=== PATIENT | female | born 1975 | race Two or more races ===

== ENCOUNTER → 2019-12-04 | Day surgery (SDC) | payer OTHER ==
[~2019-12-04] VITALS: Ht 160 cm; Wt 78.0 kg
[2019-12-04] VITALS (11 sets, daily range): BP systolic 110–147; BP diastolic 70–82
[~2019-12-04] MED LIST: Atropine Inj 1mg/10ml Syr IVP PRN; DiphenhydrAMINE 50mg/ml Inj IVP PRN; LR 1000ml 1,000 ML IVLG SCH; LR 1000ml ONE; Labetalol 5mg/ml 20ml vial IV PRN; Lidocaine 1% MPF 10mg/ml 5ml ONE; MYLANTA MAXIMU355 ML PO; Midazolam 2mg/2ml Inj IVP PRN; OMEPRAZOLE40 M1 ORAL; TRAMADOL HCL50 MG ORAL; VENTOLIN HFA18 GM INH; fentaNYL 100 mcg/2 mL IV PRN
--- NOTE | 2019-12-04 06:53 | Anethesia Preoperative Eval ---
Anesthesia Pre-op PMH/ROS General Date of Evaluation: Dec 04, 2019 Time of Evaluation: 06:51 Anesthesiologist: jackson ASA Score: ASA 3 Mallampati Score Class I : Soft palate, uvula, fauces, pillars visible Class II: Soft palate, uvula, fauces visible Class III: Soft palate, base of uvula visible Class IV: Only hard plate visible Mallampati Classification: Class II Surgeon: dallin Diagnosis: gerd, abdominal pain Surgical Procedure: egd Anesthesia History: none Family History: no anesthesia problems Allergies: Coded Allergies: No Known Allergies (Unverified , 11/30/19) Medications: see eMAR Patient NPO?: Yes Past Medical History Pulmonary: Reports: asthma Gastrointestinal/Genitourinary: Reports: GERD, other - lmp 11/03/2019 Neurologic/Psychiatric: Reports: depression/anxiety Musculoskeletal/Integumentary: Reports: other - back pain, left shoulder pain Other: obesity PSxH Narrative: cholecystectomy, shoulder sx, , btl Anesthesia Pre-op Phys. Exam Physician Exam Last Vital Signs Date Time Temp Pulse Resp B/P (MAP) Pulse Ox O2 Delivery O2 Flow Rate FiO2 12/04/19 07:37 Room Air 12/04/19 07:30 97.0 70 18 121/73 100 Constitutional: NAD Neurologic: CN 2-12 intact Cardiovascular: RRR Respiratory: CTA Gastrointestinal: S/NT/ND Airway Exam Mallampati Score: Class II MO: limited Neck: flexible TMD: 2fb ROM: limited Teeth: intact Anesthesia Pre-op A/P Labs Labs Test 12/04/19 07:15 Urine HCG, Qualitative Negative (NEGATIVE) Microbiology Date/Time Source Procedure Growth Status 11/30/19 10:20 Nasopharynx SARS-CoV-2 RdRp Gene Assay - Final Complete Risk Assessment & Plan Assessment: asa3 Plan: mac Status Change Before Surgery: No Pre-Antibiotics Drug: Jeanette Mcqueen MD Dec 04, 2019 06:53
--- NOTE | 2019-12-04 07:11 | Short Stay Surgery H&P ---
History of Present Illness History of Present Illness Chief Complaint Abdominal pains/GERDS HPI Rachel Burnham is a 44 year old female who was admitted on for Gerd,Abdominal Pain Patient History Allergies: Coded Allergies: No Known Allergies (Unverified , 11/30/19) PAST MEDICAL HISTORY: (1) Asthma (2) Anemia (3) History of (4) History of cholecystectomy (5) History of shoulder surgery (6) History of tubal ligation Medication History Scheduled Albuterol Sulfate (Ventolin Hfa), 1 PUFF INH PRN, (Reported) Mag Hydrox/Aluminum Hyd/Simeth (Mylanta Maximum Strength Liq), 355 ML PO PRN, (Reported) Omeprazole (Omeprazole), 40 MG ORAL DAILY, (Reported) Scheduled PRN Tramadol Hcl* (Ultram*), 50 MG ORAL Q6H PRN for For Pain, (Reported) Review of Systems Cardiovascular: Reports: no symptoms Respiratory: Reports: asthma Skeletal: Reports: trauma Gastrointestinal: Reports: gastro esophageal reflux disease Genitourinary: Reports: no symptoms Neurologic: Reports: no symptoms Endocrine: Reports: no symptoms Hematologic: Reports: anemia Physical Exam Skin: normal HENT: normal Heart: normal Lungs: normal Abdomen: abnormal Extremities: normal Genitourinary: normal Plan Plan of Care Upper GI. endoscopy and biopsy Preop Interventions Nonne. Summary of Findings See the reports. Attestation Are the patient's medical conditions optimized for surgery? Attestation Response: yes Jason Gonsales MD Dec 04, 2019 07:11
--- NOTE | 2019-12-04 07:12 | Pre-Procedure Note/Attestation ---
Pre-Procedure Note/Attestation Complete Prior to Procedure Planned Procedure: left Procedure Narrative: Examination of the upper GI. tract via endoscopy and obtaining biopsy. Indications for Procedure Pre-Operative Diagnosis: R/O Gastritis/Peptic Ulcer/esophagitis Attestation I attest that I discussed the nature of the procedure; its benefits; risks and complications; and alternatives (and the risks and benefits of such alternatives), prior to the procedure, with the patient (or the patient's legal access representative). I attest that, if there was a reasonable possibility of needing a blood transfusion, the patient (or the patient's legal access representative) was given the [facility] standardized written summary, pursuant to the Zeb Darlene Blood Safety Act ([place] Health and Safety Code # 1645, as amended). I attest that I re-evaluated the patient just prior to the surgery and that there has been no change in the patient's H&P, except as documented below: Jason Gonsales MD Dec 04, 2019 07:12
--- NOTE | 2019-12-04 07:45 | Discharge Instructions ---
Discharge Instructions Discharge Instructions Follow up with: Make appointment to see the doctor in 2 weeks For Congestive Heart Failure Reminder Report to your physician any weight gain of 5 pounds or more in one week. Jason Gonsales MD Dec 04, 2019 07:45
--- NOTE | 2019-12-04 08:04 | Endoscopy Procedure Note ---
Endoscopy Procedure Note General Indication for Procedure: Abdominal pains/GERDs Procedures Performed: EGD - Minimal amount of bile in the stomach noted with mild generalized gastritis. Biopsy was taken, per random, from the gastric body. Specimen: yes Pt Tolerated Procedure Well: Yes Estimated Blood Loss: none Anesthesia Anesthesiologist: Dr. Ramirez Anesthesia: moderate sedation Medications Medication Given: see anesthesia record Inserted Devices Implant(s) used?: No Quality Quality of Bowel Preparation: Excellent Was there any complications?: No GI Core Measures 50 yrs or older w/o bx or poly: Not Applicable 10yrs. F/U recommended: Not Applicable If not recommended, why?: Med reason:<3 yrs.: System Reason:<3 yrs.: Jason Gonsales MD Dec 04, 2019 08:04
--- NOTE | 2019-12-04 08:28 | Immediate Post-Op Evaluation ---
Immediate Post-Op Evalulation Immediate Post-Op Evalulation Procedure: egd w/bx Date of Evaluation: Dec 04, 2019 Time of Evaluation: 08:26 IV Fluids: 150ml lr Blood Products: none Estimated Blood Loss: negligible Blood Pressure Systolic: 118 Blood Pressure Diastolic: 74 Pulse Rate: 63 Respiratory Rate: 18 O2 Sat by Pulse Oximetry: 100 Temperature (Fahrenheit): 97.2 Pain Score (1-10): 0 Nausea: No Vomiting: No Complications none Patient Status: awake, reacts, patent Hydration Status: adequate Drug: Jeanette Mcqueen MD Dec 04, 2019 08:27
--- NOTE | 2019-12-04 09:15 | Pre-op HX & Phy Repo 2 SIG ---
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 At that time, she reported that she did have a lot of abdominal pain mostly located over the upper epigastric area along with symptoms of gastroesophageal acid reflux for which she has been receiving omeprazole and anti-acids. Recently again, I have seen the patient in the office on a regular basis that she is reporting to me that she still continues to have epigastric pain along with symptoms of heartburn consistent with gastroesophageal acid reflux, GERD. She denies, however, having any difficulty swallowing. There has been no history of hematemesis, melena, hematochezia, etc. She denies having any diarrhea or major constipation. As I mentioned, she has been taking nonsteroidal anti-inflammatory agents at least for two years and she had stopped it currently, but she is taking strong analgesics. She reported that she never had any peptic ulcer disease or any gastrointestinal conditions before being injured at job site. She denies having had any history of diagnosis for Helicobacter pylori infection in the past either. She has never undergone any upper GI endoscopic examination. It is also important to mention that she reports that she has had history of anxiety and depression subsequent to her work injury as well. PAST MEDICAL HISTORY: The patient has had history of asthma for which she is taking albuterol. Otherwise, she denies having any history of hypertension, high cholesterol, etc. There is no history of arthritis. There is, however, a question of anemia in the past the nature of which is not clear. PAST SURGICAL HISTORY: She has had three C-sections along with history of right shoulder surgery with cholecystectomy. She has also had a tubal ligation. ALLERGIES: Nonsignificant as mentioned. FAMILY HISTORY: Nonsignificant. HABITS: She does not smoke or drink. MEDICATIONS: Present medications, she is reporting that currently she is taking Mylanta, albuterol inhaler, medications consistent with a combination of magnesium and aluminum. Also, she is taking omeprazole 40 mg every morning and tramadol 50 mg as needed for severe pains. REVIEW OF SYSTEMS: HEENT: She complains of some headaches and occasional dizziness. RESPIRATORY: She has had history of asthma for which she is currently taking proper medications including inhalers. CARDIOVASCULAR: Nonsignificant. HEMATOLOGIC: She has had history of anemia, but the nature of which is not clear. It could have been related to the vaginal or uterine bleeding consistent with metrorrhagia. MUSCULOSKELETAL: She complains of significant pain over different parts of the body including shoulders and the knees and the wrist. GENITOURINARY: Nonsignificant. GYNECOLOGIC: She has reported that she has had history of uterine bleeding. ENDOCRINE: No history of diabetes. PSYCHOLOGICAL: She complains of having anxiety and depression and sleep problems. PHYSICAL EXAMINATION: GENERAL: At this time reveals alert and well-oriented, very pleasant female, who does not seem to be in acute distress. She looks well developed and nourished and obese. VITAL SIGNS: Blood pressure 121/73, temperature 97.0, respiratory rate 18 per minute, pulse rate 70 per minute. Oxygen saturation on room air is 100%. HEENT: Normocephalic. Pupils are equal in size and reactive to light and accommodation. No visible jaundice. Buccal cavity, tongue midline, well hydrated. No ulcers. NECK: Supple. No JVD, thyromegaly, or adenopathy. CHEST: Clear to auscultation and percussion. No rales or rhonchi. HEART: S1, S2 normal. Regular rhythm. No gallops or murmur. ABDOMEN: Soft, but obese. There is also areas of tenderness, mostly located over the upper part of the abdomen and epigastric area. No palpable mass noted. Bowel sounds are normal. EXTREMITIES: Within normal limits. No pretibial edema, cyanosis, or clubbing. CENTRAL NERVOUS SYSTEM: Grossly normal. INITIAL PREOPERATIVE IMPRESSION: 1. Epigastric pain of uncertain etiology, rule out NSAID-induced gastropathy, rule out peptic ulcer disease, gastritis, esophagitis, or duodenal ulcer. 2. History of asthma and anemia. 3. History of bodily injury, work-related. The patient at this time seems to be stable to undergo the procedure of upper GI endoscopy for which she has been scheduled. She understands the risks and benefits and will sign the consent. Said Ez Gonsales DR: DAMI JOB#: [id number] CC:
--- NOTE | 2019-12-04 09:15 | Operative Note - Dictated ---
DATE OF OPERATION: 12/04/2019 SURGEON: Jason Gonsales MD. PROCEDURE: Esophagogastroduodenoscopy with biopsy. PREOPERATIVE DIAGNOSIS: Abdominal pain, history of chronic gastroesophageal acid reflux, rule out peptic ulcer disease, esophagitis, gastritis, duodenal ulcer. POSTOPERATIVE DIAGNOSIS: Evidence of minimal amount of bile in the stomach with mild generalized gastritis, otherwise normal study. Biopsy was taken per random from gastric body. MEDICATION USED: Per Dr. Sinclair, anesthesiologist. INSTRUMENT: GIF Olympus upper GI video endoscope. DESCRIPTION OF PROCEDURE: The patient after arriving in the endoscopy unit, was told about risks and benefits of the procedure, which she accepted and signed informed consent. At this time, she was put on the left lateral decubitus position. After adequate IV sedation, the scope was gently passed through the cricopharyngeal area, was lodged into the upper esophagus and was gradually advanced towards gastroesophageal junction. The entire length of the esophagus was normal and there was no any evidence of inflammatory process, ulceration, stricture, etc. GE junction also looked completely normal without any evidence of Young's mucosa or hiatal hernia. At this time, the scope was advanced into the stomach. Gastric cavity was distended with insufflation of air. Examination of the stomach beginning from the fundus up to the pre-pyloric area revealed evidence of minimal amount of bile in the stomach and underlying mucosa revealed evidence of mild erythema consistent with mild generalized gastritis. However, there was no evidence of polyps, tumors, ulcers, hemangiomas, etc. At this point, one random biopsy from gastric body was obtained and subsequently scope was passed through the pylorus. First and second portion of duodenum were also found to be completely normal. At this time, the scope was pulled back into the stomach. A retroflexion maneuver was applied and the area of the gastroesophageal junction was examined in a closer fashion, which revealed no abnormalities. Finally, the scope was pulled out and the procedure was terminated. The patient tolerated the procedure well and left the endoscopy room in good condition. Jason Gonsales M.D. DR: DAMI JOB#: [id number] CC:
--- NOTE | 2019-12-04 09:23 | 48 Hour Post Anesthesia Eval ---
Post Anesthesia Evaluation Procedure: egd w/bx Date of Evaluation: Dec 04, 2019 Time of Evaluation: 08:28 Blood Pressure Systolic: 127 0: 78 Pulse Rate: 77 Respiratory Rate: 18 Temperature (Fahrenheit): 97.2 O2 Sat by Pulse Oximetry: 100 Airway: patent Nausea: No Vomiting: No Pain Intensity: 0 Hydration Status: adequate Cardiopulmonary Status: stable Mental Status/LOC: patient returned to baseline Post-Anesthesia Complications: none Follow-up care needed: N/A Jeanette Ramirez MD Dec 04, 2019 09:23
== END | disposition home or self-care (01) ==
LOC: GAS 07:03
DX: R10.9 Unspecified abdominal pain (principal); K21.9 Gastro-esophageal reflux disease without esophagitis; K29.50 Unspecified chronic gastritis without bleeding; Z90.49 Acquired absence of other specified parts of digestive tract; Z79.899 Other long term (current) drug therapy; E66.9 Obesity, unspecified; F32.9 Major depressive disorder, single episode, unspecified; F41.9 Anxiety disorder, unspecified; R51.9 Headache, unspecified; R42 Dizziness and giddiness; Z68.30 Body mass index [BMI] 30.0-30.9, adult
CPT/HCPCS: 43239; 81025; 94003; J2704; J7120; U0002; 94150